=== PATIENT | female | born 1950 | race Caucasian/White ===

== ENCOUNTER 2021-12-31 09:35 | Emergency (ER) | payer MEDICARE ==
[~2021-12-31] VITALS: Ht 144.8 cm; Wt 68.4 kg
[2021-12-31 09:51] VITALS: BP 215/104
[2021-12-31 10:36] LABS: BASOPHILS # (AUTO) 0.1 X10'3 (0-0.2); BASOPHILS % (AUTO) 0.8 % (0-1); EOSINOPHILS # (AUTO) 0.1 X10'3 (0-0.9); HEMATOCRIT 35.1 % (35.0-45.0); HEMOGLOBIN 11.8 g/dl (12.0-16.0); LYMPHOCYTES # (AUTO) 1.6 X10'3 (1.1-4.8); LYMPHOCYTES % (AUTO) 22.6 % (21-51); MEAN CORPUSCULAR HEMOGLOBIN 30.8 PG (27.0-31.0); MEAN CORPUSCULAR HGB CONC 33.7 g/dL (33.0-36.5); MEAN CORPUSCULAR VOLUME 91.4 FL (78-98); MEAN PLATELET VOLUME 6.9 FL (7.4-10.4); MONOCYTES # (AUTO) 0.6 X10'3 (0-0.9); MONOCYTES % (AUTO) 8.4 % (2-12); NEUTROPHILS # (AUTO) 4.6 X10'3 (1.8-7.7); NEUTROPHILS % (AUTO) 66.2 % (42-75); PLATELET COUNT 275 X10'3 (140-440); RED BLOOD COUNT 3.84 X10'6 (4.20-5.60); RED CELL DISTRIBUTION WIDTH 13.1 % (11.5-14.5)
[2021-12-31 10:51] LABS: ALANINE AMINOTRANSFERASE 23 U/L (12-78); ALBUMIN 4.2 G/DL (3.4-5.0); ALBUMIN/GLOBULIN RATIO 1.1 (1.1-1.5); ALKALINE PHOSPHATASE 70 IU/L (46-116); ANION GAP 8 (8-16); ASPARTATE AMINO TRANSFERASE 27 U/L (10-37); BILIRUBIN,TOTAL 0.9 MG/DL (0.1-1.0); BLOOD UREA NITROGEN 13 MG/DL (7-18); BUN/CREATININE RATIO 15.3 (6.6-38.0); CALCIUM 9.4 MG/DL (8.5-10.1); CHLORIDE 102 MMOL/L (99-107); CREATININE 0.85 MG/DL (0.40-0.90); GLUCOSE 87 MG/DL (70-104); POTASSIUM 3.8 MMOL/L (3.5-5.1); SODIUM 138 MMOL/L (135-145); TOTAL CARBON DIOXIDE 28.3 MMOL/L (24-32); eGFR 66 ML/MIN
[2021-12-31] MEDS ORDERED: AMLO5TAB4 PO (13:44)
== END 2021-12-31 13:27 | disposition home or self-care (01) ==
LOC: ER 09:35
DX: S46.912A Strain of unspecified muscle, fascia and tendon at shoulder and upper arm level, left arm, initial encounter (principal); M25.512 Pain in left shoulder; M54.89 Other dorsalgia; R11.0 Nausea; Z88.8 Allergy status to other drugs, medicaments and biological substances; Z79.899 Other long term (current) drug therapy; X58.XXXA Exposure to other specified factors, initial encounter; Y93.89 Activity, other specified; Y92.89 Other specified places as the place of occurrence of the external cause; Y99.8 Other external cause status
CPT/HCPCS: 36415; 71045; 73030; 80053; 83880; 84484; 85025; 93005; 99285

== ENCOUNTER 2023-04-20 09:05 | Inpatient (IN) | payer MEDICARE ==
[~2023-04-20] VITALS: Ht 147.3 cm; Wt 70.4 kg
[~2023-04-20 09:05] MED LIST: AMLO5TAB4 PO
[2023-04-20] MEDS ORDERED: iohexol 350MG/ML 100ml bottle IV ONE (09:28)
[2023-04-20] MEDS ORDERED: aspirin 325mg tablet PO ONE (10:15)
[2023-04-20] MEDS ORDERED: atorvastatin 20mg tablet PO SCH (10:15)
[2023-04-20] MEDS ORDERED: clopidogrel 300mg tablet PO ONE (10:15)
[2023-04-20 10:42] LABS: BASOPHILS # (AUTO) 0.1 X10'3 (0-0.2); BASOPHILS % (AUTO) 0.9 % (0-1); EOSINOPHILS # (AUTO) 0.1 X10'3 (0-0.9); EOSINOPHILS % (AUTO) 1.4 % (0-6); HEMATOCRIT 31.5 % (35.0-45.0); HEMOGLOBIN 10.5 g/dl (12.0-16.0); LYMPHOCYTES # (AUTO) 1.8 X10'3 (1.1-4.8); LYMPHOCYTES % (AUTO) 31.6 % (21-51); MEAN CORPUSCULAR HEMOGLOBIN 30.9 PG (27.0-31.0); MEAN CORPUSCULAR HGB CONC 33.4 g/dL (33.0-36.5); MEAN CORPUSCULAR VOLUME 92.4 FL (78-98); MEAN PLATELET VOLUME 7.4 FL (7.4-10.4); MONOCYTES # (AUTO) 0.5 X10'3 (0-0.9); MONOCYTES % (AUTO) 8.2 % (2-12); NEUTROPHILS # (AUTO) 3.2 X10'3 (1.8-7.7); NEUTROPHILS % (AUTO) 57.9 % (42-75); PLATELET COUNT 287 X10'3 (140-440); RED CELL DISTRIBUTION WIDTH 12.4 % (11.5-14.5); WHITE BLOOD COUNT 5.6 X10'3 (4.5-11.0)
[2023-04-20 10:44] LABS: ANION GAP 10 (8-16); BLOOD UREA NITROGEN 16 MG/DL (7-18); CALCIUM 8.9 MG/DL (8.5-10.1); CHLORIDE 98 MMOL/L (99-107); GLUCOSE 110 MG/DL (70-104); POTASSIUM 4.1 MMOL/L (3.5-5.1); SODIUM 131 MMOL/L (135-145); TOTAL CARBON DIOXIDE 22.6 MMOL/L (24-32); eCRCL 33 ML/MIN; eGFR 55 ML/MIN
[2023-04-20 10:45] LABS: APTT 28 SECONDS (22-32); INR 0.9 INR; PROTHROMBIN TIME 10.1 SECONDS (9.0-12.0)
[2023-04-20] MEDS ORDERED: normal saline 1000ml 1,000 ML IV ONE (10:45)
[2023-04-20 11:21] LABS: BILIRUBIN,URINE NEGATIVE (Neg); CLARITY,URINE CLEAR (Clear); COLOR,URINE YELLOW (Yellow); GLUCOSE, URINE NEGATIVE (Neg); KETONES,URINE NEGATIVE (Neg); LEUKOCYTE ESTERASE ,URINE NEGATIVE (Neg); NITRITES, URINE NEGATIVE (Neg); OCCULT BLOOD,URINE NEGATIVE (Neg); PROTEIN,URINE NEGATIVE (Neg); UROBILINOGEN,URINE 0.2 E.U/dL (0.2-1.0)
[2023-04-20 11:24] LABS: UA COLLECTION TYPE CLN CATCH MIDSTREAM
[2023-04-20 12:00] LABS: URINE AMPHETAMINE SCREEN NEGATIVE (Neg); URINE BARBITUATE SCREEN NEGATIVE (Neg); URINE BENZODIAZEPINES SCREEN NEGATIVE (Neg); URINE CANNABINOID SCREEN NEGATIVE (Neg); URINE COCAINE SCREEN NEGATIVE (Neg); URINE METHADONE SCREEN NEGATIVE (Neg); URINE OPIATE SCREEN NEGATIVE (Neg); URINE PHENCYCLIDINE SCREEN NEGATIVE (Neg)
[2023-04-20] MEDS ORDERED: morphine 2 MG/ML inj. syringe IV PRN ×2 (12:10)
[2023-04-20] MEDS ORDERED: magnesium hydroxide 30ml (MOM) UD suspension PO PRN (12:10)
[2023-04-20] MEDS ORDERED: acetaminophen 325mg tablet PO PRN (12:10)
[2023-04-20] MEDS ORDERED: potassium Cl 40MEQ/1/2NS 520ml 520 ML IV PRN (12:10)
[2023-04-20] MEDS ORDERED: ondansetron/PF 4mg/2ml inj IV PRN (12:10)
[2023-04-20] MEDS ORDERED: HYDROcodone/acetaminophen 5mg/325mg tablet PO PRN (12:10)
[2023-04-20] MEDS ORDERED: magnesium Cl slow-release 64mg tablet PO PRN (12:10)
[2023-04-20] MEDS ORDERED: magnesium 4gm in 100ml NS 100 ML IV PRN (12:10)
[2023-04-20] MEDS ORDERED: magnesium 2GM in 50ml NS 50 ML IV PRN (12:10)
[2023-04-20] MEDS ORDERED: mag hydrox/Alum hydrox/simeth 30ml oral suspension PO PRN (12:10)
[2023-04-20] MEDS ORDERED: HYDROcodone/acetaminophen 10/325mg tab PO PRN (12:10)
[2023-04-20] MEDS ORDERED: potassium Cl 20 mEq SR tablet PO PRN ×2 (12:10)
[2023-04-20] MEDS: normal saline 1000ml 1,000 ML IV SCH ×2 (12:15→22:35)
[2023-04-20] MEDS ORDERED: LORazepam 2 mg/ml vial IV PRN (13:00)
[2023-04-20 13:07] LABS: HEMOGLOBIN A1C 4.7 % (4.5-6.2)
[2023-04-20 13:32] LABS: ALANINE AMINOTRANSFERASE 22 U/L (12-78); ALBUMIN 3.9 G/DL (3.4-5.0); ALBUMIN/GLOBULIN RATIO 1.1 (1.1-1.5); ALKALINE PHOSPHATASE 70 IU/L (46-116); ANION GAP 11 (8-16); ASPARTATE AMINO TRANSFERASE 20 U/L (10-37); BILIRUBIN,TOTAL 0.7 MG/DL (0.1-1.0); BLOOD UREA NITROGEN 14 MG/DL (7-18); BUN/CREATININE RATIO 14.4 (10.0-20.0); CHLORIDE 100 MMOL/L (99-107); CHOL/HDL RATIO 2.4 (0.00-4.99); CHOLESTEROL 212 MG/DL (0-200); CREATININE 0.97 MG/DL (0.40-0.90); FREE T4 (FREE THYROXINE) 0.83 NG/DL (0.73-1.40); GLUCOSE 99 MG/DL (70-104); HDL CHOLESTEROL 88 MG/DL (35-60); LDL CHOLESTEROL 93 MG/DL (50-100); POTASSIUM 4.3 MMOL/L (3.5-5.1); PRO BRAIN NATRIURETIC PEPTIDE 343 PG/ML (0-125); SODIUM 133 MMOL/L (135-145); TOTAL CARBON DIOXIDE 21.6 MMOL/L (24-32); TOTAL PROTEIN 7.6 G/DL (6.4-8.2); TRIGLYCERIDES 61 MG/DL (20-135); eCRCL 34 ML/MIN; eGFR 57 ML/MIN
[2023-04-20] MEDS: K and/or MAG REPLACEMENT MC SCH (20:00)
[2023-04-20 20:05] VITALS: BP 118/59; PULSE 75; RESP 17; TEMP 97.3; O2SAT 97
[2023-04-20] MEDS: docusate sod 100mg capsule PO SCH (22:33)
[2023-04-20] MEDS: heparin, porcine 5000 units/ml vial SQ SCH (22:34)
[2023-04-21 02:45] VITALS: BP 118/54; PULSE 71; RESP 17; TEMP 98.3; O2SAT 98
[2023-04-21 07:06] VITALS: BP 165/85; PULSE 72; RESP 18; TEMP 98; O2SAT 98
[2023-04-21 07:10] LABS: BASOPHILS # (AUTO) 0.1 X10'3 (0-0.2); EOSINOPHILS # (AUTO) 0.1 X10'3 (0-0.9); EOSINOPHILS % (AUTO) 1.6 % (0-6); HEMATOCRIT 33.1 % (35.0-45.0); HEMOGLOBIN 11.1 g/dl (12.0-16.0); LYMPHOCYTES # (AUTO) 2.1 X10'3 (1.1-4.8); LYMPHOCYTES % (AUTO) 36.2 % (21-51); MEAN CORPUSCULAR HEMOGLOBIN 31.1 PG (27.0-31.0); MEAN CORPUSCULAR HGB CONC 33.6 g/dL (33.0-36.5); MEAN CORPUSCULAR VOLUME 92.6 FL (78-98); MEAN PLATELET VOLUME 6.9 FL (7.4-10.4); MONOCYTES # (AUTO) 0.5 X10'3 (0-0.9); NEUTROPHILS # (AUTO) 3.1 X10'3 (1.8-7.7); NEUTROPHILS % (AUTO) 52.2 % (42-75); PLATELET COUNT 307 X10'3 (140-440); RED BLOOD COUNT 3.58 X10'6 (4.20-5.60); RED CELL DISTRIBUTION WIDTH 12.7 % (11.5-14.5); WHITE BLOOD COUNT 5.9 X10'3 (4.5-11.0)
[2023-04-21 07:26] LABS: APTT 27 SECONDS (22-32); INR 0.9 INR; PROTHROMBIN TIME 10.1 SECONDS (9.0-12.0)
[2023-04-21 07:55] VITALS: RESP 18; O2SAT 98
[2023-04-21 07:58] LABS: ALANINE AMINOTRANSFERASE 23 U/L (12-78); ALBUMIN 4.1 G/DL (3.4-5.0); ALBUMIN/GLOBULIN RATIO 1.1 (1.1-1.5); ALKALINE PHOSPHATASE 74 IU/L (46-116); ANION GAP 11 (8-16); ASPARTATE AMINO TRANSFERASE 23 U/L (10-37); BLOOD UREA NITROGEN 14 MG/DL (7-18); BUN/CREATININE RATIO 14.6 (10.0-20.0); CALCIUM 9.2 MG/DL (8.5-10.1); CHLORIDE 102 MMOL/L (99-107); CREATININE 0.96 MG/DL (0.40-0.90); GLUCOSE 95 MG/DL (70-104); PHOSPHORUS 3.9 MG/DL (2.3-4.5); POTASSIUM 4.1 MMOL/L (3.5-5.1); SODIUM 137 MMOL/L (135-145); THYROID STIMULATING HORMONE 5.01 ulU/ml (0.34-4.50); TOTAL CARBON DIOXIDE 23.6 MMOL/L (24-32); eCRCL 35 ML/MIN; eGFR 57 ML/MIN
[2023-04-21] MEDS ORDERED: aspirin 81mg, enteric-coated 1 TAB TABLET.DR PO SCH (08:00)
[2023-04-21] MEDS: K and/or MAG REPLACEMENT MC SCH (08:00)
[2023-04-21] MEDS ORDERED: atorvastatin 20mg tablet PO SCH (08:00)
[2023-04-21] MEDS ORDERED: clopidogrel 75mg tablet PO SCH (08:00)
[2023-04-21] MEDS: docusate sod 100mg capsule PO SCH (08:44)
[2023-04-21] MEDS: heparin, porcine 5000 units/ml vial SQ SCH (08:45)
[2023-04-21] MEDS ORDERED: LOSA-415 PO (08:49)
[2023-04-21] MEDS ORDERED: ATOR20TA66 PO (10:43)
[2023-04-21] MEDS ORDERED: CLOP75TA34 PO (10:43)
[2023-04-21] MEDS ORDERED: ASPI-1071 PO (10:43)
[2023-04-21 11:42] VITALS: BP 125/62; PULSE 75; RESP 13; TEMP 97.7; O2SAT 98
== END 2023-04-21 13:28 | disposition home or self-care (01) | DRG 65 ==
LOC: ER 09:05 → ED HOLD 12:10 → EDBEDREQ 15:53 → PCU 3S 19:52
PROVIDERS: ADMIT Internal Medicine; ATTEND Internal Medicine
PROC: BW291ZZ Computerized Tomography (CT Scan) of Head and Neck using Low Osmolar Contrast (ICD-10-PCS; principal; 2023-04-20)
DX: I63.9 Cerebral infarction, unspecified (principal); E87.1 Hypo-osmolality and hyponatremia; I50.32 Chronic diastolic (congestive) heart failure; R29.702 NIHSS score 2; E03.9 Hypothyroidism, unspecified; I11.0 Hypertensive heart disease with heart failure; Z79.899 Other long term (current) drug therapy
CPT/HCPCS: 36415; 70450; 70496; 70498; 70551; 71045; 80048; 80053; 80061; 80305; 81003; 83036; 83735; 83880; 84100; 84132; 84439; 84443; 85025; 85610; 85730; 86885; 86900; 86901; 92508; 92616; 93005; 93306; 99285; G0378; J1644; J2060; J3490; J7030; Q9967